=== PATIENT | male | born 1980 | race Two or more races ===

== ENCOUNTER 2018-06-06 11:06 | Emergency (ER) | payer OTHER ==
[2018-06-06 11:12] VITALS: BMI 25.4
--- NOTE | 2018-06-06 12:22 | PDOC ---
History of Present Illness - General Chief Complaint: Headache Stated Complaint: PCP SENT/HEADACHE Time Seen by Provider: 06/06/18 11:23 History Source: Patient Exam Limitations: Clinical Condition - History of Present Illness Initial Comments: 06/06/18 12:27 Patient with no sig Past medical history present with complain of 4 days history of urinary frequency, dysuria and urgency with urination and headache. Patient reported he had body pains and chills 3 days ago which has improved. And report taking 1200 mg Tylenol for the headache and has not been improving. Patient was seen in urgent care 3 days ago and started on Cipro antibiotics due to leukocyte on UA. Patient reported urine culture now back from the urgent care. Patient reported history of Lyme disease 15 years ago. Denies any other symptoms Timing/Duration: other (4 days) Past History - Past Medical History Allergies/Adverse Reactions: Allergies Allergy/AdvReac Type Severity Reaction Status Date / Time NSAIDS (Non-Steroidal Allergy Verified 06/06/18 11:12 Anti-Inflamma Home Medications: Ambulatory Orders Cefpodoxime Proxetil [Vantin -] 200 mg PO Q12H 7 Days #14 tablet 06/06/18 Phenazopyridine HCl [Pyridium] 100 mg PO TID #6 tablet 06/06/18 COPD: No - Suicide/Smoking/Psychosocial Hx Smoking History: Never smoked Review of Systems - Review of Systems Able to Perform ROS?: Yes Is the patient limited [place] proficient: No Constitutional: Yes: Malaise. No: Chills, Fever, Weakness HEENTM: No: Symptoms Reported Respiratory: No: Symptoms reported Cardiac (ROS): No: Symptoms Reported ABD/GI: No: Constipated, Diarrhea, Difficulty Swallowing, Nausea, Rectal Bleeding, Vomiting : Yes: See HPI, Burning (for 4 days), Dysuria, Frequency, Hematuria, Urgency. No: Discharge Musculoskeletal: No: Symptoms Reported Neurological: Yes: Headache. No: Numbness, Pre-Existing Deficit, Weakness, Unsteady Gait, Dizziness All Other Systems: Reviewed and Negative *Physical Exam - Vital Signs Last Vital Signs Temp Pulse Resp BP Pulse Ox 98.0 F 68 18 128/81 99 06/06/18 11:10 06/06/18 11:10 06/06/18 11:10 06/06/18 11:10 06/06/18 11:10 - Physical Exam Comments: 06/06/18 12:34 GENERAL: Well developed, well nourished. Awake and alert. No acute distress. HEENT: Normocephalic, atraumatic. PERRLA, EOMI. No conjunctival pallor. Sclera are non- icteric. Moist mucous membranes. Oropharynx is clear. NECK: Supple. Full ROM. No JVD. Carotid pulses 2+ and symmetric, without bruits. No thyromegaly. No lymphadenopathy. CARDIOVASCULAR: Regular rate and rhythm. No murmurs, rubs, or gallops. Distal pulses are 2+ and symmetric. PULMONARY: No evidence of respiratory distress. Lungs clear to auscultation bilaterally. No wheezing, rales or rhonchi. ABDOMINAL: Soft. Non-tender. Non-distended. No rebound or guarding. No organomegaly. Normoactive bowel sounds. MUSCULOSKELETAL Normal range of motion at all joints. No bony deformities or tenderness. No CVA tenderness. EXTREMITIES: No cyanosis. No clubbing. No edema. No calf tenderness. SKIN: Warm and dry. Normal capillary refill. No rashes. No jaundice. NEUROLOGICAL: Alert, awake, appropriate. Cranial nerves 2-12 intact. Normal speech. Toes are down-going bilaterally. Gait is normal without ataxia. PSYCHIATRIC: Cooperative. Good eye contact. Appropriate mood and affect. General Appearance: Yes: Nourished, Appropriately Dressed. No: Apparent Distress ED Treatment Course - LABORATORY CBC & Chemistry Diagram: 06/06/18 12:24 06/06/18 12:24 Medical Decision Making - Medical Decision Making 06/06/18 12:35 Patient with no significant past medical history present with complain of 4 days history of urinary frequency, dysuria, burning with urination and headaches with malaise. Patient sent by urgent care due to persistent headache even though on day 3 of Cipro antibiotics. Clinical exam unremarkable. Labs ordered. Imitrex IM for headache. Treat based on labs results 06/06/18 16:08 CBC shows elevated white blood cell count. Patient with improvement headache after Imitrex medication. IV ceftriaxone 1 g given. Case discussed with patient primary care wound was patient discharge on antibiotics and follow-up in clinic tomorrow. Patient stable for home discharge on by mouth antibiotics for a week with PCP follow-up *DC/Admit/Observation/Transfer Diagnosis at time of Disposition: UTI (urinary tract infection) Qualifiers: Urinary tract infection type: acute cystitis Hematuria presence: with hematuria Qualified Code(s): N30.01 - Acute cystitis with hematuria Headache Qualifiers: Headache type: other headache syndrome Qualified Code(s): G44.89 - Other headache syndrome - Discharge Dispostion Disposition: HOME Condition at time of disposition: Stable Decision to Admit order: No - Prescriptions Prescriptions: Cefpodoxime Proxetil [Vantin -] 200 mg PO Q12H 7 Days #14 tablet Phenazopyridine HCl [Pyridium] 100 mg PO TID #6 tablet - Referrals Referrals: Carmela Parker MD [Primary Care Provider] - - Patient Instructions Printed Discharge Instructions: Acute Cystitis Additional Instructions: Take medication as prescribed. Follow-up with primary care tomorrow as instructed. - Post Discharge Activity Forms/Work/School Notes: Back to Work
[2018-06-06] MEDS ORDERED: SUMATRIPTAN SUCCINATE 6 MG/0.5 ML VIAL SQ ONE (12:36)
[2018-06-06 12:50] LABS: BASO % 0.2 % (0-2.0); EOS % 0.2 % (0-4.5); HEMATOCRIT 41.5 % (35.4-49); HEMOGLOBIN 14.1 GM/dL (11.7-16.9); LYMPH % 14.2 % (8-40); MCH 30.4 pg (25.7-33.7); MCHC 33.9 g/dl (32.0-35.9); MEAN CELL VOLUME 89.5 fl (80-96); MEAN PLT VOLUME 9.1 fl (7.5-11.1); MONO % 9.1 % (3.8-10.2); NEUT % 76.3 % (42.8-82.8); PLATELET COUNT 194 K/MM3 (134-434); RBC 4.64 M/mm3 (4.00-5.60); RDW 12.7 % (11.9-15.9); WHITE BLOOD COUNT 16.3 K/mm3 (4.0-10.0)
[2018-06-06] MEDS ORDERED: SUMATRIPTAN SUCCINATE 6 MG/0.5 ML VIAL ONE (13:00)
[2018-06-06 13:14] LABS: URINE APPEARANCE SLCLOUDY; URINE BILIRUBIN NEGATIVE (<2.0 mg/dL); URINE COLOR YELLOW; URINE GLUCOSE (UA) NEGATIVE (NEGATIVE); URINE KETONE NEGATIVE (NEGATIVE); URINE NITRITE NEGATIVE (NEGATIVE); URINE UROBILINOGEN NEGATIVE mg/dL (0.2-1.0)
[2018-06-06 13:15] LABS: URINE LEUK ESTERASE 3+ (NEGATIVE); URINE PROTEIN 1+ (NEGATIVE)
[2018-06-06 13:22] LABS: ALBUMIN 3.9 g/dl (3.4-5.0); ANION GAP 3 MMOL/L (8-16); BLOOD UREA NITROGEN 8 mg/dL (7-18); CALCIUM 9.9 mg/dL (8.5-10.1); CHLORIDE 104 mmol/L (98-107); CO2 32 mmol/L (21-32); GLUCOSE,RANDOM 123 mg/dL (74-106); SODIUM 139 mmol/L (136-145)
[2018-06-06 13:34] LABS: ALK PHOS 66 U/L (45-117); BILIRUBIN,TOTAL 0.6 mg/dL (0.2-1); SGPT/ALT 59 U/L (13-61); TOT PROT 7.8 g/dl (6.4-8.2)
[2018-06-06 13:38] LABS: POTASSIUM 4.3 mmol/L (3.5-5.1); SGOT/AST 37 U/L (15-37)
[2018-06-06] MEDS ORDERED: CEFTRIAXONE 1,000 MG in DEXTROSE 5%-WATER - 50 ML IVPB ONE (15:28)
[2018-06-06] MEDS ORDERED: CEFTRIAXONE 1 GM/50 ML BAG ONE (15:38)
[2018-06-06 15:56] VITALS: BP 117/71; PULSE 53; TEMP 98.1
--- NOTE | 2018-06-06 15:57 | PDOC ---
*Physical Exam - Vital Signs Last Vital Signs Temp Pulse Resp BP Pulse Ox 98.7 F 52 L 18 105/66 100 06/06/18 15:53 06/06/18 15:53 06/06/18 15:53 06/06/18 15:53 06/06/18 15:53 ED Treatment Course - LABORATORY CBC & Chemistry Diagram: 06/06/18 12:24 06/06/18 12:24 - ADDITIONAL ORDERS Additional order review: Laboratory Results 06/06/18 06/06/18 12:54 12:24 Sodium 139 Potassium 4.3 Chloride 104 Carbon Dioxide 32 Anion Gap 3 L BUN 8 Creatinine 1.0 Creat Clearance w eGFR > 60 Random Glucose 123 H Calcium 9.9 Total Bilirubin 0.6 AST 37 ALT 59 Alkaline Phosphatase 66 Total Protein 7.8 Albumin 3.9 Urine Color Yellow Urine Appearance Slcloudy Urine pH 6.0 Ur Specific [place] 1.019 Urine Protein 1+ H Urine Glucose (UA) Negative Urine Ketones Negative Urine Blood Negative Urine Nitrite Negative Urine Bilirubin Negative Urine Urobilinogen Negative Ur Leukocyte Esterase 3+ H Urine WBC (Auto) 120 Urine RBC (Auto) 11 06/06/18 12:24 RBC 4.64 MCV 89.5 MCHC 33.9 RDW 12.7 MPV 9.1 Neutrophils % 76.3 Lymphocytes % 14.2 Monocytes % 9.1 Eosinophils % 0.2 Basophils % 0.2 - Medications Given in the ED: ED Medications Discontinued Medications Generic Name Dose Route Start Last Admin Trade Name Freq PRN Reason Stop Dose Admin Sumatriptan Succinate 6 mg 06/06/18 12:36 06/06/18 13:07 Imitrex Injection - SQ 06/06/18 12:37 6 mg ONCE ONE Administration Medical Decision Making - Medical Decision Making 06/06/18 15:54 Mr Ferris is a 38 yo M who presents to the ER with a complaint of bodyaches and headache S/p recent diagnosis of UTI (done at outside facility, no access to micro) Pt has been on Cipro for the past 3 days No vomiting or inability to tolerate po No flank pain Laboratory Tests 06/06/18 06/06/18 12:24 12:54 WBC 16.3 H Urine Blood Negative Urine Nitrite Negative Ur Leukocyte Esterase 3+ H Urine WBC (Auto) 120 Urine RBC (Auto) 11 Pt treated for Headache Call placed to pmd He requests that pt be discharged Will give Ceftriaxone Can go on Cefpodoxime As UTI is rare in a male of this age, ?Prostatis? *DC/Admit/Observation/Transfer Diagnosis at time of Disposition: UTI (urinary tract infection), Headache - Discharge Dispostion Disposition: HOME Condition at time of disposition: Stable - Prescriptions Prescriptions: Cefpodoxime Proxetil [Vantin -] 200 mg PO Q12H 7 Days #14 tablet Phenazopyridine HCl [Pyridium] 100 mg PO TID #6 tablet - Referrals Referrals: Carmela Parker MD [Primary Care Provider] - - Patient Instructions Printed Discharge Instructions: Acute Cystitis Additional Instructions: Take medication as prescribed. Follow-up with primary care tomorrow as instructed. - Post Discharge Activity Forms/Work/School Notes: Back to Work
== END 2018-06-06 16:35 | disposition home or self-care (01) ==
LOC: JER 11:06
PROC: 3E03329 Introduction of Other Anti-infective into Peripheral Vein, Percutaneous Approach (ICD-10-PCS; principal; 2018-06-06)
PROC: 3E023GC Introduction of Other Therapeutic Substance into Muscle, Percutaneous Approach (ICD-10-PCS; 2018-06-06)
DX: N30.01 Acute cystitis with hematuria (principal); G44.89 Other headache syndrome
CPT/HCPCS: 36415; 80053; 81003; 81015; 85025; 86618; 87086; 87491; 87591; 99282-25